=== PATIENT | female | born 1985 | race Caucasian/White ===

== ENCOUNTER → 2017-12-26 | Outpatient (CLI) | payer BC ==
[~2017-12-26] MED LIST: MOTRIN 600600 MG/TAB PO; PERCOCET 325 MG1 TA2 PO; PRENATAL1 TA1 PO
== END ==
LOC: MC.RAD 09:39
DX: N63.23 Unspecified lump in the left breast, lower outer quadrant (principal)

== ENCOUNTER 2018-10-20 06:49 | Inpatient (IN) | payer BC ==
[~2018-10-20] VITALS: Ht 167.7 cm; Wt 111.4 kg
[2018-10-21] VITALS (17 sets, daily range): BP systolic 90–117; BP diastolic 47–72; PULSE 66–82; TEMP 97.8–98.8
--- NOTE | 2018-10-21 09:30 | NUR ---
G3L2 at 39.4 weeks gestation to room 220 for scheduled repeat . Plan of care reviewed. Patient changed into gown. Wedged left in bed. EFMs explained and applied. FHR 130 bpm and reactive. No CTX per toco or patient reports. VSS. Assessment completed and consents signed. IV started in left hand with labs drawn from site. LR infusing per orders. Patient oriented to room and call light.
[2018-10-21 09:57] LABS: BASO % 0.4 % (0.0-2.0); EOS # 0.1 (0.0-0.7); EOS % 1.3 % (0-4.0); GRAN % 63.8 % (42.2-75.2); HEMOGLOBIN 12.4 g/dl (12.5-16.0); LYMPH # 1.8 (1.2-3.4); LYMPH % 22.9 % (20.0-51.0); MEAN CELL VOLUME 88 fl (80.0-100.0); MEAN CORPUSCULAR HEMOGLOBIN 30 pg (27.0-31.0); MEAN CORPUSCULAR HGB CONC 34 g/dl (33.0-37.0); MEAN PLATELET VOLUME 11.1 fl (7.4-10.4); MONO # 0.9 (0.1-0.6); MONO % 10.8 % (1.7-9.3); PLATELET COUNT 176 K/mm3 (130-400); RED BLOOD COUNT 4.09 M/mm3 (4.10-5.30); REDCELL DISTRIBUTION WIDTH-CV 13.4 % (11.5-14.5)
[2018-10-22 00:01] VITALS: BP 128/78; PULSE 69; TEMP 97.8
[2018-10-22 07:45] VITALS: BP 116/69; PULSE 68; TEMP 97.9
[2018-10-22 08:12] LABS: HEMOGLOBIN 11.8 g/dl (12.5-16.0)
[2018-10-22 08:18] LABS: HEMATOCRIT 35.2 % (37.0-47.0)
--- NOTE | 2018-10-22 10:37 | NUR ---
Initial visit; Parents thanked [employer] for offering congratulations and God's blessings for the of their daughter. [employer] thanked family for choosing [facility].
[2018-10-22 16:24] VITALS: BP 102/60; PULSE 73; TEMP 98.1
[2018-10-22 23:25] VITALS: BP 119/75; PULSE 74; TEMP 98.2
--- NOTE | 2018-10-23 08:30 | NUR ---
Care of patient assumed.
[2018-10-23 09:02] VITALS: BP 116/72; PULSE 79; TEMP 97.2
[2018-10-23] MEDS ORDERED: PERCOCET 325 MG1 TA2 PO (09:32)
[2018-10-23] MEDS ORDERED: IBU600 MG PO (09:32)
--- NOTE | 2018-10-23 12:00 | NUR ---
Patient given dc instructions. Denies questions. Escorted off unit after car seat straps checked.
== END 2018-10-23 12:00 | disposition home or self-care (01) | DRG 788 ==
LOC: LDR 06:49 → OB 10-21 08:42 → LDR 10-21 13:02 → OB 10-23 12:00
PROVIDERS: ADMIT Obstetrics & Gynecology
PROC: 10D00Z1 Extraction of Products of Conception, Low, Open Approach (ICD-10-PCS; principal; 2018-10-21)
DX: O34.211 Maternal care for low transverse scar from previous cesarean delivery (principal); O32.3XX0 Maternal care for face, brow and chin presentation, not applicable or unspecified; O99.62 Diseases of the digestive system complicating childbirth; K21.9 Gastro-esophageal reflux disease without esophagitis; Z3A.39 39 weeks gestation of pregnancy; Z37.0 Single live birth
CPT/HCPCS: J0690; J1885; J2270; J2370; J2405; J2590; J3010; J7120